=== PATIENT | female | born 1950 | race Caucasian/White ===

== ENCOUNTER → 2017-06-14 | Outpatient (CLI) | payer MEDICARE, BC ==
[2017-06-14 15:19] LABS: Amorphous Sediment,Urine Rare /hpf; Appearance,Urine Cloudy (Clear); Bacteria,Urine Rare /hpf; Bilirubin,Urine Negative (Negative); Glucose,Urine (UA) Negative (Negative); Ketones,Urine Negative (Negative); Leukocyte Esterase,Urine Large (Negative); Mucus,Urine Rare /hpf; Nitrite,Urine Negative (Negative); PH, Urine 5.5 (5.0-8.0); Particle Count 4441; Protein,Urine Negative (Negative); RBC,Urine 1 /hpf (0-5); Specific Gravity,Urine 1.018 (1.001-1.035); Squamous Epithelial Cell,Urine 12 /hpf (0-4); UA Billing (MACRO vs. MICRO) MICRO; Urobilinogen,Urine <2.0 mg/dL (<2.0); WBC,Urine 11 /hpf (0-5)
== END | disposition home or self-care (01) ==
LOC: LABPAT 12:30
PROVIDERS: ATTEND Urology
DX: Z01.812 Encounter for preprocedural laboratory examination (principal); N39.3 Stress incontinence (female) (male); R35.0 Frequency of micturition
CPT/HCPCS: 81001; 87086

== ENCOUNTER 2017-06-22 09:18 | Day surgery (SDC) | payer MEDICARE, BC ==
[2017-06-16 16:05] VITALS: BMI 37.2
[~2017-06-22 09:18] MED LIST: DEXAMETHASONE SOD PHOSPHATE 10 MG/ML 1 ML VIAL IV ONE; ONDANSETRON 4 MG/2 ML VIAL IVP ONE; ceFAZolin 1,000 MG in DEXTROSE/WATER 1 50ML.BAG IV ONE
[2017-06-22 10:39] LABS: Glucose,Whole Blood 83 mg/dL (75-99)
[2017-06-22] MEDS: LACTATED RINGERS 1,000 ML IV SCH (10:39)
[2017-06-22] MEDS ORDERED: LIDOCAINE 1% 20 ML VIAL (10MG/ML) FOR IV START INTRADERMA ONE (10:39)
[2017-06-22] MEDS ORDERED: VASOPRESSIN 20 UNIT/ML 1 ML VIAL SQ ONE (11:50)
[2017-06-22] MEDS ORDERED: fentaNYL (PF) 50 MCG/ML 2 ML AMP ONE (12:02)
[2017-06-22] MEDS ORDERED: PROPOFOL 10 MG/ML 20 ML VIAL IV ONE (12:02)
[2017-06-22] MEDS ORDERED: SUCCINYLCHOLINE CHLORIDE 100 MG/5 ML SYR IV ONE (12:02)
[2017-06-22] MEDS ORDERED: LIDOCAINE 1% INJ 10MG/ML (20 ML MDV) ONE (12:02)
[2017-06-22] MEDS ORDERED: MIDAZOLAM 2 MG/2 ML VIAL ONE (12:02)
[2017-06-22] MEDS ORDERED: ONDANSETRON 4 MG/2 ML VIAL IVP PRN (13:07)
--- NOTE | 2017-06-22 13:13 | P.OP ---
Date of Procedure: 06/22/17 Preoperative Diagnosis: Stress urinary incontinence Postoperative Diagnosis: Stress urinary incontinence Procedure(s) Performed: Pubovaginal sling with cystoscopy Anesthesia: PANDA Surgeon: Efren Johnson Estimated Blood Loss (ml): 100 Pathology: none sent Condition: stable Disposition: PACU Indications for Procedure: The patient is a 66-year-old female with documented stress urinary incontinence. Her leak point pressures are on the 100 cm water but her Valsalva pressures are so high that I will do a pubovaginal sling instead of a trans-obturator tape. Risks and complications of an outlined. Description of Procedure: The patient is brought to the operating suite she is given a successful general endotracheal anesthesia. She's placed lithotomy position with a sterile prep and drape. The labia are sewn laterally to silk. A vaginal speculum was placed. A catheters introduced sterilely and the urethra. The anterior vaginal mucosa is elevated off the submucosa with 10 mL of a mixture of 20 units of Pitressin and 60 mL of saline. A midline suburethral incision is made. I dissect lateral to the bladder neck bilaterally and penetrate the endopelvic fascia bilaterally. I move suprapubically. A Pfannenstiel incision is made. I dissect down the rectus fascia. A 2 cm x 8 cm ellipse of rectus fascia is obtained. The rectus fascias closed with running 0 PDS. Each end of the fascial graft place a 2-0 Prolene I then passed the Stamey needles at the corners of the pubis retropubically into the vaginal space bilaterally. I do cystoscopy of the Foroblique lens and 17-Russian sheath to make sure there is no injury to the bladder neck or bladder mucosa and there is none. I attached the Prolene stitches to the eyes of the Stamey needles and pulled him back suprapubically. The graft lay at the bladder neck nicely and is secured with a 3-0 Vicryl. I then tied the ends of the Prolene to one another over the rectus fascias such that one to 2 fingerbreadths can fit underneath. I closed the skin with a Foroblique and a. I closed the vaginal mucosa with a 2-0 Vicryl. The labial stitches are removed. A vaginal packing is placed. The patient is awakened and returned recovery room in good condition. She tolerated the procedure well. Blood loss is 100 mL. She'll be kept in the hospital overnight.
[2017-06-22] MEDS: KETOROLAC 30 MG/ML 1 ML VIAL IVP PRN ×2 (13:32→18:15)
[2017-06-22] MEDS: HYDROmorphone 1 MG/ML 1 ML SYRINGE IVP PRN ×5 (13:33→13:45)
[2017-06-22] MEDS: HYDROcodone/APAP 7.5-325MG 1 EACH TAB PO PRN (17:32)
[2017-06-23] MEDS: KETOROLAC 30 MG/ML 1 ML VIAL IVP PRN ×4 (01:03→19:14)
[2017-06-23] MEDS: HYDROcodone/APAP 7.5-325MG 1 EACH TAB PO PRN ×3 (03:58→17:41)
[2017-06-23] MEDS: LEVOTHYROXINE 112 MCG TAB PO SCH (06:15)
--- NOTE | 2017-06-23 06:53 | P.PN ---
Subjective The patient is in her first postoperative day from a pubovaginal sling. She did well overnight with stable vital signs. Urine output was good. She has some discomfort in the incision as expected. The catheter and packing of been removed. We will so she does and determine discharged later today. Objective - Vital Signs Vital signs: Vital Signs Temp 98.5 F 06/23/17 01:10 Pulse 82 06/23/17 01:10 Resp 18 06/23/17 01:10 BP 103/61 06/23/17 01:10 Pulse Ox 95 06/23/17 01:10 Intake & Output 06/22/17 06/22/17 06/23/17 06:59 18:59 06:59 Intake Total 950 Output Total 1005 800 Balance -55 -800 Intake: IV 950 Output: Urine 975 800 Uretheral (German) 800 Estimated Blood Loss 30 Other: Voiding Method Indwelling Catheter Indwelling Catheter
[2017-06-23] MEDS: LISINOPRIL 10 MG TAB PO SCH (07:52)
[2017-06-23] MEDS: DEXTROSE 5%-0.45% NACL 1,000 ML IV SCH ×2 (20:02→20:03)
[2017-06-23] MEDS: LACTATED RINGERS 1,000 ML IV SCH (20:45)
[2017-06-23] MEDS: SENNOSIDES-DOCUSATE SODIUM 1 EACH TAB PO SCH (20:46)
[2017-06-24] MEDS: HYDROcodone/APAP 7.5-325MG 1 EACH TAB PO PRN ×2 (00:42→07:06)
[2017-06-24] MEDS: LACTATED RINGERS 1,000 ML IV SCH (06:07)
[2017-06-24] MEDS: DEXTROSE 5%-0.45% NACL 1,000 ML IV SCH (06:07)
[2017-06-24] MEDS: LEVOTHYROXINE 112 MCG TAB PO SCH (07:01)
[2017-06-24] MEDS: SENNOSIDES-DOCUSATE SODIUM 1 EACH TAB PO SCH (08:47)
[2017-06-24 08:48] VITALS: BP 112/60; PULSE 71; RESP 19; TEMP 97.1
[2017-06-24] MEDS: LISINOPRIL 10 MG TAB PO SCH (09:07)
--- NOTE | 2017-06-24 09:15 | P.DS ---
Providers Attending physician: Efren Johnson Primary care physician: Juan José Sheldon [facility] Course: The patient was admitted to the hospital 06/22/2017 for a pubovaginal sling. She underwent this without difficulty. She is voiding well. She is voiding frequently due to her IV fluids. She is emptying her bladder. Her pain is been controlled. She is ready for discharge home. She's discharged home on a regular diet limited activity and will follow-up in the office in one week. Postoperative instructions have been given. Patient Condition at Discharge: Good Plan - Discharge Summary New Discharge Prescriptions: New HYDROcodone/APAP 5-325MG [Vichy 5-325] 1 tab PO Q4HR PRN #20 tab PRN Reason: Pain Control No Action Lisinopril [Zestril] 10 mg PO QAM Levothyroxine Sodium 112 mcg PO QAM Discharge Medication List Levothyroxine Sodium 112 mcg PO QAM 06/16/17 [History] Lisinopril [Zestril] 10 mg PO QAM 06/16/17 [History] HYDROcodone/APAP 5-325MG [Vichy 5-325] 1 tab PO Q4HR PRN #20 tab 06/23/17 [Rx] Follow up Appointment(s)/Referral(s): Efren Johnson MD [STAFF PHYSICIAN] - 1 Week (June AT 9:20AM) Discharge Disposition: HOME SELF-CARE
== END 2017-06-24 10:35 | disposition home or self-care (01) ==
LOC: OR 09:18 → 6PED 13:05 → OR 06-24 10:35
PROVIDERS: ATTEND Urology
DX: N39.46 Mixed incontinence (principal); I10 Essential (primary) hypertension; G47.33 Obstructive sleep apnea (adult) (pediatric); Z99.89 Dependence on other enabling machines and devices; E11.9 Type 2 diabetes mellitus without complications; E03.9 Hypothyroidism, unspecified; E55.9 Vitamin D deficiency, unspecified; B35.4 Tinea corporis; E66.9 Obesity, unspecified; Z79.899 Other long term (current) drug therapy
CPT/HCPCS: 57288; J2250; J1100; J2405; J2001; J3010; J1885 ×2; J1170; J0690; J0330; J2704